=== PATIENT | male | born 1950 | race Caucasian/White ===

== ENCOUNTER 2018-11-03 18:30 | Emergency (ER) | payer MEDICARE ==
[~2018-11-03] VITALS: Ht 167.6 cm; Wt 86.3 kg
[2018-11-03 18:32] VITALS: BP 124/99
[2018-11-03] MEDS ORDERED: cyclobenzaprine 10mg tablet PO ONE (20:25)
[2018-11-03] MEDS ORDERED: ketorolac tromethamine 15mg/ml inj. IM ONE (20:25)
== END 2018-11-03 20:39 | disposition home or self-care (01) ==
LOC: ER 18:31
DX: M54.32 Sciatica, left side (principal); I10 Essential (primary) hypertension; E78.00 Pure hypercholesterolemia, unspecified
CPT/HCPCS: 73502; 96372; 99283; J1885